=== PATIENT | female | born 1990 | race Caucasian/White ===

== ENCOUNTER 2017-08-04 15:47 | Inpatient (IN) ==
[2017-08-04] MEDS ORDERED: Naloxone 0.4 MG/ML INJ IVP PRN (16:06)
[2017-08-04] MEDS ORDERED: *HR* Nalbuphine 20 MG/ML AMPUL IVP PRN (16:06)
[2017-08-04] MEDS ORDERED: Famotidine 20 MG/2 ML VIAL IVP PRN (16:06)
[2017-08-04 16:37] LABS: Basophils % 0.1 %; Eosinophils % 0.3 %; Hematocrit 34.2 % (35.3-44.9); Hemoglobin 11.5 g/dL (11.5-15.4); Immature Granulocytes % 0.7 % (0-4); Lymphocytes # 1.1 K/mcL (0.6-4.6); Lymphocytes % 15.7 %; Mean Corpuscular HGB Conc 33.6 g/dL (31.6-35.5); Mean Corpuscular Hemoglobin 30.3 pg (28.0-33.3); Mean Platelet Volume 11.3 fL (9.4-12.4); Monocytes # 0.4 K/mcL (0.0-1.3); Neutrophils # 5.5 K/mcL (1.6-8.9); Platelet Count 178 K/mcL (140-400); Red Cell Distribution Width 14.3 % (11.5-14.5); Segmented Neutrophils % 77.2 %
[2017-08-04] MEDS ORDERED: miSOPROStol 100 MCG TABLET PO STA (17:02)
--- NOTE | 2017-08-04 17:24 | OB/GYN History & Physical ---
Date of Encounter: 08/04/17 Time of Encounter: 17:10 Assessment and Plan (1) 38 weeks gestation of Current visit: No Status: Acute (2) SROM (spontaneous rupture of membranes) Current visit: Yes Status: Acute Patient has a positive nitrazine and fern test. She will be admitted for induction. - NST assessment. - Cytotec - IV fluids - Nubain for pain control. - Epidural consult. - UDS. History of Present Illness Chief complaint: SROM HPI: Ms. Arreola is a 27 year old female at 38 6/7 weeks gestation that presents for labor evaluation. Patient says that she had a copious amount of vaginal fluid leakage earlier today at 3 pm. She denies any vaginal bleeding. She admits to good movement. She denies any contractions, [place], vision changes, chest pain, shortness of breath, nausea, vomiting, fever, chills, dysuria, and diarrhea. GBS: negative Blood type: A- HepBSAg: non-reactive (01/29/17) HIV Ag/Ab: non-reactive T. pallidum Ab: negative Rubella Ab: positive Varicella Ab: positive All other labs normal. Past Med Surg Social Fam HX - Past Medical History Medical history: no medical history Psychiatric history: no psych history - Past Surgical History Surgical History: no surgical history, other - Social History Smoking Status: Never smoker Smokeless Tobacco Status: Yes Alcohol use: none Drug use: none - Family History Mother Adopted: No Living Status: Still Living Hx Family Cardiac Disorders: No Hx Family Respiratory Disorders: No Hx Family Cancer: No Hx Family GI Disorders: No Hx Family Genitourinary Disorders: No Hx Family Endocrine Disorder: No Hx Family Musculoskeletal Disorders: No Hx Family Neuromuscular Disorders: No Hx Family Neurologic Disorders: No Hx Family HEENT Disorders: No Hx Family Autoimmune Disorders: No Hx Family Reproductive Disorders: No Hx Family Psychosocial Disorders: No Hx Family Medical Disorders: No Obstetrical History - Pregnancies : 2 Para: 1 Term: 1 : 0 Ab's: 0 Livin Medications and Allergies Cyclobenzaprine [Flexeril] 10 mg PO TID #10 tablet 07/31/17 [Rx] Nexium 24Hr 1 tab PO DAILY 08/04/17 [History] Vit Calc,Iron,Folic [ Vitamins] 1 tab PO DAILY 08/04/17 [ History] 3 Allergy/AdvReac Type Severity Reaction Status Date / Time No Known Allergies Allergy Verified 08/04/17 16:36 Exam - Vital Signs Vital signs: BP: 124/78 HR: 108 FHR: 157 [place]: 11 - Constitutional Constitutional: well developed, well nourished, no acute distress, average body habitus - Lungs Respiratory exam: CTAB - Cardiovascular Cardiovascular exam: +S1, +S2, tachycardia (Borderline tachycardia) - Abdomen Abdomen: Present: bowel sounds normal, gravid, non tender - Extremities Extremities exam: full ROM, normal capillary refill, normal inspection, radial pulses palpable and symmetrical Deep Tendon Reflex Grade: 2+ Normal - Cervix Dilation: 1 (1-2 cm) Effacement: 60 Station: -2 Results Result Diagrams: 08/04/17 16:13 Abnormal lab results RBC 3.80 M/mcL (3.82-4.97) L 08/04/17 16:13 Hct 34.2 % (35.3-44.9) L 08/04/17 16:13 All other labs normal. - VTE Reasons for not Prescribing Prophylaxis: Treatment not Indicated - Low risk for VTE - Attending Attestation I examined this patient and my medical decision-making was reviewed with the Resident Physician. I agree with the documented findings, disposition and treatment plan as described except to the extent set forth below. Dom Terrazas CNM
--- NOTE | 2017-08-04 18:39 | Anesthesia Evaluation PreOp ---
Date of Encounter: 08/04/17 Time of Encounter: 18:37 - Past History Planned Operation: mele Cardiac History: Denies any Significant Hx Pulmonary History: Denies Any Significant HX DRUPAL PHP DEVELOPER History: Denies Any Significant HX Other Medical History: GERD Anesthesia History: No Prior Anesthetic Complications, Past Anesthesia (tonsils) : Yes (38 weeks, 6 days, ) Alcohol Use: none Drug use: none Medications and Allergies Cyclobenzaprine [Flexeril] 10 mg PO TID #10 tablet 07/31/17 [Rx] Nexium 24Hr 1 tab PO DAILY 08/04/17 [History] Vit Calc,Iron,Folic [ Vitamins] 1 tab PO DAILY 08/04/17 [ History] 3 Allergy/AdvReac Type Severity Reaction Status Date / Time No Known Allergies Allergy Verified 08/04/17 16:36 - Meds/Allergy Pre-op Review Medications Reviewed: Yes Allergies Reviewed: Yes Beta Blockers on Current Med List: No Anesthesia Results - Labs 08/04/17 16:13 Anesthesia Exam O2 Sat Height 1.7 m Weight 97.5 kg bp 124/78 hr 108 rr 18 Height: 67 Weight: 97 - HEENT Pupil (Motor): Pupils equal Mallampati: II Teeth: Normal Oral Opening: Greater than 3 - DRUPAL PHP DEVELOPER LOC: Oriented DRUPAL PHP DEVELOPER Motor: Normal RUE, Normal LUE, Normal RLE, Normal LLE, Normal Face DRUPAL PHP DEVELOPER Sensory: Normal: RUE, LUE, RLE, Face, Deficit: LLE (recent back pain with pain radiating down left leg) - Cardiac Rhythm: Regular Murmur: None JVD: No Carotid Bruit: No - Pulmonary Breath Sounds: bilateral Clear Respiratory Effort: Symmetrical Anesthesia Assess/Plan ASA Score: 2 Modified Tong Scale for Level of Consciousness: Cooperative, oriented, and tranquil Anesthetic Plan: Regional Autologous Blood: No Monitoring Plan: Standard Monitors
[2017-08-04 19:13] LABS: Amphetamine Screen,Urine Negative ng/mL (Cutoff=1000); Barbiturate Screen,Urine Negative ng/mL (Cutoff=200); Benzodiazepines Screen,Urine Negative ng/mL (Cutoff=200); Cannabinoid Screen,Urine Negative ng/mL (Cutoff = 50); Cocaine Screen,Urine Negative ng/mL (Cutoff= 300); Opiate Screen,Urine Negative ng/mL (Cutoff=300); Phencyclidine Screen,Urine Negative ng/mL (Cutoff=25)
[2017-08-04] MEDS: Ringers Solution, Lactated 1,000 ML IVC SCH (21:28)
[2017-08-04] MEDS ORDERED: Oxytocin 20 units/ LR 1000 mL 20 UNIT/1,000 ML BAG IVC SCH (22:00)
--- NOTE | 2017-08-05 04:22 | OB Labor Progress Note ---
Date of Encounter: 08/05/17 Time of Encounter: 04:19 Labor Progress Note - Subjective Subjective: Patient resting in bed. Patient reports discomfort. Discussed POC with patient. Patient denies any questions or concerns. - Cervix Cervix: 3/80/-2 - Heart Tones Heart Tones: 145 bpm moderate variability +15x15 accels no decels noted. - Baker Baker: 3-4 min apart - Interventions Interventions: SVE, IUPC placed without difficulty. Patient tolerated well. - Plan Plan: Continue labor management. Patient may have Nubain or Epidural when desires.
--- NOTE | 2017-08-05 08:35 | OB Labor Progress Note ---
Date of Encounter: 08/05/17 Time of Encounter: 08:33 Labor Progress Note - Subjective Subjective: Patient tearful in bed stating that she is tired and frustrated that her cervix has not made any change. - Vital Signs Vital Signs: VSS - Cervix Cervix: 3/70/-2 anterior - Heart Tones Heart Tones: 140 moderate variability and 15 x 15 accels. No decels. - [place]: Contrations every 2-4 minutes mild to palpation. 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 consider changing it out - Plan Plan: Continue routine labor management Discussed epidural vs iv pain medication when needed Encouraged movement and position change frequently Change IV pitocin bag and half current dose; then continue to increase as per orders GBS negative Anticipate vaginal delivery POC per consult with Dr Rojas.
[2017-08-05] MEDS ORDERED: EPHEDrine 50 MG/ML VIAL IVP PRN (10:57)
[2017-08-05] MEDS ORDERED: *HR* Ropivacaine/PF 0.2% 10 ML AMPUL EP ONE (10:57)
[2017-08-05] MEDS ORDERED: Ringers Solution, Lactated 500 ML IVC ONE (10:57)
[2017-08-05] MEDS ORDERED: ROPIVACAINE HCL/PF 0.5% 30 ML VIAL ONE (10:59)
[2017-08-05] MEDS ORDERED: Epidural Premix (fent/bupiv) 110 ML EP SCH (11:00)
[2017-08-05] MEDS ORDERED: Epidural Premix (fent/bupiv) 110 ML EP ONE ×2 (11:00→16:31)
--- NOTE | 2017-08-05 11:26 | Anesthesia Procedures ---
Date of Encounter: 08/05/17 Time of Encounter: 11:00 Procedures: Anesthesia - Epidural/Spinal Patient ID/Chart reviewed: Yes Patient examined: Yes OB Eval: Gestational age: 38.2 OB Eval: : 2 OB Eval: Hx Para: 1 OB Eval: Dilated at (cm): 3 OB Eval: Contractions: Non-stressed pattern Consent Obtained: Yes Supplemental Oxygen: None/Room Air Site Prep: Aseptic Technique, Sterile prep and drape, 0.5% Chlorhexidine/Alcohol Patient position: upright Local Anesthetic: Lidocaine 1% Amount of Local Anesthetic used: 2.5 Touhy Needle Gauge: 18 Touhy Needle Depth (cm): 7 Catheter Depth at Skin (cm): 12 Test Dose (1.5% Lido + Epi): Volume given (mls): 3 Test Dose Result: Negative Loading Dose: Other: Ropivacaine 0.5% 8mL Loading Dose Administered: Thru Catheter Infusion Med: 0.125% Bupivacaine w/ 2 mcg/ml Fentanyl Infusion Rate (mls/hr): 14 (Bolus 4mL q15min; Max 3/hour) Catheter Secured in Place: Tegaderm Interspace Used: L3-L4 Loss of Resistance ([place]): Yes Blood: No CSF: No Paresthesia: No Procedure: x1 attempt. Patient tolerated procedure well. Reports increased comfort after 2 contractions. Vitals + FHT's: VSS and FHR stable throughout. See nursing documentation.
[2017-08-05] MEDS ORDERED: Penicillin G Potassium 5,000,000 UNIT in D5% in Water (Mini-Bag+) 100 ML IVPB ONE (13:32)
[2017-08-05] MEDS ORDERED: Acetaminophen 325 MG TABLET PO PRN ×2 (13:33→21:19)
[2017-08-05] MEDS: Ringers Solution, Lactated 1,000 ML IVC SCH (14:08)
[2017-08-05] MEDS ORDERED: *HR* FentaNYL (PF) 100 MCG/2 ML VIAL ONE (14:21)
[2017-08-05] MEDS ORDERED: Lidocaine 1% 20 ML MDV ONE (14:39)
--- NOTE | 2017-08-05 14:50 | OB Labor Progress Note ---
Date of Encounter: 08/05/17 Time of Encounter: 14:47 Labor Progress Note - Subjective Subjective: Patient states pain is much better with epidural, but is beginning to feel some pressure in her back. . - Vital Signs Vital Signs: VSS - Cervix Cervix: 7/100/0 - Heart Tones Heart Tones: 160 with moderate variability and 15 x 15 accels. - [place]: Contractions every 2-4 minutes - Interventions Interventions: Encouraged rotation in bed - Plan Plan: Continue routine labor management GBS negative Low grade fever noted per RN; tylenol given po and PCN started for PROM Continue IV pitocin for adequate labor pattern Anticipate vaginal delivery POC per consult with Dr Rojas.
[2017-08-05] MEDS ORDERED: Penicillin G Potassium 2,500,000 UNIT in D5% in Water 100 ML IVPB SCH (16:00)
[2017-08-05] MEDS ORDERED: Ampicillin 2 GM in 0.9 % Sodium Chloride Mini Bag 100 ML IVPB STA (16:16)
[2017-08-05] MEDS ORDERED: Gentamicin 380 MG in 0.9 % Sodium Chloride 100 ML IVPB STA (16:19)
[2017-08-05] MEDS ORDERED: Methylergonovine 0.2 MG/ML AMPUL IM ONE (18:54)
--- NOTE | 2017-08-05 19:08 | OB/GYN Procedure Note ---
Delivery - Delivery Date: 08/05/17 Provider: Alfreda Tipton Intrapartum events: febrile- temp >100.3 Delivery induction: misoprostol Delivery augmentation: rupture of membranes Delivery monitor: external FHT, external uterine, internal uterine Anesthesia: epidural Estimated Blood Loss: 450 - (s) Infant A Infant Delivery Date: 08/05/17 Infant Delivery Time: 18:11 Presentation: vertex Position: DIANNA Route of delivery: Gender: Male Viability: Viable Pounds: 8 Ounces: 8 Weight Gram: 3845 kg at 1 minute: 8 at 5 mins: 9 Shoulder Dystocia: not encountered Placenta: spontaneous - Repair Episiotomy: none Laceration Description: Periurethral (hemostatic), Superficial (2 stitches for hemostasis) - Complications Delivery complications: none Delivery comments: Patient progressed to complete and began coached pushing to of viable, vigorous male infant in the DIANNA position. Turtle sign noted with pushing and Dr Rojas called to the room for potential shoulder dystocia. No nuchal, no meconium stained fluid, and no shoulder dystocia encountered. Infant placed on maternal abdomen and cord double clamped and cut after 2 minutes of age. Infant taken to prewarmed radiant warmer by NICU for assessent. Apgars 8 and 9 at 1 and 5 minutes of age respectively. Placenta delivered spontaneously and appears grossly intact with 3 vessel cord. Uterine atony noted after delivery of placenta, resolved with bimanual massage, pitocin IV, and methergine IM. EBL 450. Upon inspection of the perineum, a hemostatic anterior periurethral laceration was noted. A superficial posterior non-hemostatic laceration was located and hemostasis was achieved with 3-0 vicryl in the usual fashion. Mother and infant are stable in LDR for recovery. Dr Rojas present at delivery. - Disposition Mom disposition: stable in LDR disposition: stable in LDR
[2017-08-05] MEDS ORDERED: Oxytocin 20 units/ LR 1000 mL 20 UNIT/1,000 ML BAG IVC SCH (21:19)
[2017-08-05] MEDS ORDERED: Sennosides 8.6 MG TABLET PO PRN (21:19)
[2017-08-05] MEDS ORDERED: Benzocaine/Menthol 56 GM AEROSOL SPRAY TP PRN (21:19)
[2017-08-05] MEDS ORDERED: Oxytocin 20 units/ LR 1000 mL 20 UNIT/1,000 ML BAG IVC ONE (21:19)
[2017-08-05] MEDS ORDERED: Measles/Mumps/Rubella Vacc 0.5 ML VIAL SQ PRN (21:19)
[2017-08-06] MEDS ORDERED: Ampicillin 2 GM in 0.9 % Sodium Chloride Mini Bag 100 ML IVPB SCH
[2017-08-06] MEDS: Ibuprofen 600 MG TABLET PO PRN ×2 (03:53→10:04)
[2017-08-06 05:14] LABS: Basophils % 0.1 %; Eosinophils % 0.1 %; Immature Granulocytes % 0.5 % (0-4); Lymphocytes # 1.1 K/mcL (0.6-4.6); Lymphocytes % 5.8 %; Mean Corpuscular HGB Conc 34.4 g/dL (31.6-35.5); Mean Corpuscular Hemoglobin 30.8 pg (28.0-33.3); Mean Corpuscular Volume 89.4 fL (83.0-100.0); Mean Platelet Volume 11.2 fL (9.4-12.4); Monocytes # 0.9 K/mcL (0.0-1.3); Monocytes % 4.7 %; Neutrophils # 16.7 K/mcL (1.6-8.9); Platelet Count 171 K/mcL (140-400); Red Blood Count 3.02 M/mcL (3.82-4.97); Red Cell Distribution Width 14.5 % (11.5-14.5); Segmented Neutrophils % 88.8 %
[2017-08-06 05:15] LABS: Hemoglobin 9.3 g/dL (11.5-15.4)
--- NOTE | 2017-08-06 08:30 | Discharge Summary ---
Date of Encounter: 08/06/17 Time of Encounter: 08:20 - Discharge Diagnosis (1) Vaginal delivery Priority: Primary Status: Acute Comments: Pt meeting all milestones. She desires discharge home today. (2) anemia Priority: Secondary Status: Acute Comments: home on iron - Discharge Medications Prescriptions: Ibuprofen [Motrin] 600 mg PO Q6HR PRN #60 tablet PRN Reason: Cramping Docusate [Colace] 100 mg PO BID #60 capsule Ferrous Sulfate 325 mg PO DAILY #30 tablet Home Medications: Vit Calc,Iron,Folic [ Vitamins] 1 tab PO DAILY 08/04/17 [ History] Benzocaine/Menthol Wrens [Dermoplast Wrens] 1 appl TP QID PRN aerosol 08/06/17 [Rx] Docusate [Colace] 100 mg PO BID #60 capsule 08/06/17 [Rx] Ferrous Sulfate 325 mg PO DAILY #30 tablet 08/06/17 [Rx] Ibuprofen [Motrin] 600 mg PO Q6HR PRN #60 tablet 08/06/17 [Rx] Vit/FA 1 each PO DAILY tablet 08/06/17 [Rx] Allergies/Adverse Reactions: 3 Allergy/AdvReac Type Severity Reaction Status Date / Time No Known Allergies Allergy Verified 08/04/17 16:36 Data Procedures and tests throughout hospitalization: Laboratory Tests 08/04/17 08/04/17 08/05/17 16:13 17:45 20:21 WBC 7.1 RBC 3.80 L Hgb 11.5 Hct 34.2 L MCV 90.0 MCH 30.3 MCHC 33.6 RDW 14.3 Plt Count 178 MPV 11.3 Immature Gran % 0.7 Seg Neutrophils % 77.2 Lymphocytes % 15.7 Monocytes % 6.0 Eosinophils % 0.3 Basophils % 0.1 Neutrophils # 5.5 Lymphocytes # 1.1 Monocytes # 0.4 Eosinophils # 0.0 Basophils # 0.0 Urine Opiates Screen Negative Ur Barbiturates Screen Negative Ur Phencyclidine Scrn Negative Ur Amphetamines Screen Negative U Benzodiazepines Scrn Negative Urine Cocaine Screen Negative U Marijuana (THC) Screen Negative Baby's Blood Type A RH POSITIVE Mother's Blood Type A RH NEGATIVE Rhogam Indicated YES 08/06/17 04:45 WBC 18.8 H D RBC 3.02 L Hgb 9.3 L D Hct 27.0 L MCV 89.4 MCH 30.8 MCHC 34.4 RDW 14.5 Plt Count 171 MPV 11.2 Immature Gran % 0.5 Seg Neutrophils % 88.8 Lymphocytes % 5.8 Monocytes % 4.7 Eosinophils % 0.1 Basophils % 0.1 Neutrophils # 16.7 H Lymphocytes # 1.1 Monocytes # 0.9 Eosinophils # 0.0 Basophils # 0.0 Urine Opiates Screen Ur Barbiturates Screen Ur Phencyclidine Scrn Ur Amphetamines Screen U Benzodiazepines Scrn Urine Cocaine Screen U Marijuana (THC) Screen Baby's Blood Type Mother's Blood Type Rhogam Indicated Labs on day of discharge: Labs from last 24 hours 08/06/17 08/05/17 04:45 20:21 WBC 18.8 H D RBC 3.02 L Hgb 9.3 L D Hct 27.0 L MCV 89.4 MCH 30.8 MCHC 34.4 RDW 14.5 Plt Count 171 MPV 11.2 Immature Gran % 0.5 Seg Neutrophils % 88.8 Lymphocytes % 5.8 Monocytes % 4.7 Eosinophils % 0.1 Basophils % 0.1 Neutrophils # 16.7 H Lymphocytes # 1.1 Monocytes # 0.9 Eosinophils # 0.0 Basophils # 0.0 Screen Pending Baby's Blood Type A RH POSITIVE Mother's Blood Type A RH NEGATIVE Rhogam Indicated YES Rhogam Req for Mother Pending Date of admission: 08/04/17 15:47 Primary care physician: Tomeka Ko Discharging clinician: Bettina Talamantes Anticipated date of discharge: 08/06/17 - Patient Status Disposition: Home, Self-Care Condition: Good Functional capacity at discharge: independent ambulation Overall status at discharge: patient is progressing back to baseline - Discharge Instructions Follow Up With: Tomeka Echavarria MD [Primary Care Provider] - Alfreda Tipton CNM [Advanced Practice Nurse] - - Diet and Activity Activity: resume usual activities as tolerated Diet: regular diet Hospital Course Reason for admission: rupture of membranes Delivery: Episiotomy: none Laceration: other Other procedures: none complications: none Discharge diagnosis: IUP at term delivered baby: male Hospital course: - Delivery Date: 08/05/17 Provider: Alfreda Tipton Intrapartum events: febrile- temp >100.3 Delivery induction: misoprostol Delivery augmentation: rupture of membranes Delivery monitor: external FHT, external uterine, internal uterine Anesthesia: epidural Estimated Blood Loss: 450 - Infant (s) Infant A Infant Delivery Date: 08/05/17 Delivery Time: 18:11 Presentation: vertex Position: DIANNA Route of delivery: Gender: Male Viability: Viable Pounds: 8 Ounces: 8 Weight Gram: 3845 kg at 1 minute: 8 at 5 mins: 9 Shoulder Dystocia: not encountered Placenta: spontaneous - Repair Episiotomy: none Laceration Description: Periurethral (hemostatic), Superficial (2 stitches for hemostasis) - Complications Delivery complications: none - Disposition Mom disposition: home PPD#1 disposition: home with mother, bottle feeding Time Attestation: Total time spent providing and/or coordinating discharge services: Time Spent: Less than 30 minutes Exam - Constitutional Vitals: Temp Pulse Resp BP Pulse Ox 97.8 F 102 14 110/72 96 08/06/17 04:00 08/06/17 04:00 08/06/17 04:00 08/06/17 04:00 08/06/17 04:00 General appearance IM: A&O X 3, pleasant, no acute distress - Respiratory Respiratory exam: Present: CTAB - Cardiovascular Cardiovascular exam IM: Present: RRR, +S1, +S2, systolic murmur - GI/Abdominal GI/Abdominal exam IM: soft - Rectal Rectal exam: deferred - External exam: normal external exam Uterine Tone: Firm Uterus Position: 1 Finger Below Umbilicus - Extremities Exam Extremities exam IM: Present: normal inspection, pedal edema (mild bilaterally) - Neurological Exam Neurological exam: normal gait, oriented X3 - Psychiatric Additional comments: reports good mood
[2017-08-06] MEDS ORDERED: Prenatal Vit/FA 1 EACH TABLET PO SCH (09:00)
[2017-08-06] MEDS ORDERED: NON-FORMULARY MEDICATION 1 EACH EACH (Prenatal Vit Calc,Iron,Folic [Prenatal Vitamins] 1 T PO SCH (09:00)
[2017-08-06] MEDS ORDERED: Rho Immune Globulin 1,500 UNIT SYRINGE IM ONE (09:53)
[2017-08-06 16:29] VITALS: BP 99/62
[2017-08-06] MEDS ORDERED: Methylergonovine 0.2 MG/ML AMPUL IM ONE (19:59)
== END 2017-08-06 20:00 | disposition home or self-care (01) | DRG 775 ==
LOC: 1NENULAB → OBSVTOIN 15:47 → 1NENUOBS 08-05 21:22
PROVIDERS: ADMIT Obstetrics & Gynecology; ATTEND Advanced Practice Midwife